=== PATIENT | female | born 1990 | race American Indian/Alaskan Native ===

== ENCOUNTER 2020-08-04 11:37 | Outpatient (CLI) | payer OTHER ==
--- NOTE | 2020-08-04 14:07 | XRay Report ---
XR knee 3V LT INDICATION: LEFT KNEE INJURY [id number]. COMPARISON: No relevant prior imaging study available. FINDINGS: No acute skeletal abnormality. No significant soft tissue abnormality. IMPRESSION: 1. No acute findings. Signer Name: Toi Cruz MD Signed: 08/04/2020 2:02 PM Workstation Name: [id number]
== END 2020-08-04 11:38 | disposition home or self-care (01) ==
LOC: SPVIMAG 11:37
PROVIDERS: ATTEND Internal Medicine
DX: S89.92XA Unspecified injury of left lower leg, initial encounter (principal); X58.XXXA Exposure to other specified factors, initial encounter; Y93.89 Activity, other specified; Y92.89 Other specified places as the place of occurrence of the external cause; Y99.8 Other external cause status